=== PATIENT | female | born 1990 ===

== ENCOUNTER 2023-05-27 14:05 | Outpatient (CLI) | payer OTHER | END 2023-05-27 14:06 | disposition home or self-care (01) | LOC: PRENATAL 14:05 | PROVIDERS: ATTEND Obstetrics & Gynecology Maternal & Fetal Medicine | DX: O35.3XX0 Maternal care for (suspected) damage to fetus from viral disease in mother, not applicable or unspecified (principal); O44.00 Complete placenta previa NOS or without hemorrhage, unspecified trimester; Z3A.20 20 weeks gestation of pregnancy ==

== ENCOUNTER 2023-08-21 13:32 | Outpatient (CLI) | payer OTHER | END 2023-08-21 13:34 | disposition home or self-care (01) | LOC: PRENATAL 13:32 | PROVIDERS: ATTEND Obstetrics & Gynecology Maternal & Fetal Medicine | DX: O26.843 Uterine size-date discrepancy, third trimester (principal); O36.8130 Decreased fetal movements, third trimester, not applicable or unspecified; Z3A.32 32 weeks gestation of pregnancy ==

== ENCOUNTER 2023-12-23 16:00 | Outpatient (CLI) | payer OTHER | END 2023-12-23 16:10 | disposition home or self-care (01) | LOC: PPH VACUNA 16:00 | PROVIDERS: ATTEND Emergency Medicine Pediatric Emergency Medicine | DX: Z23 Encounter for immunization (principal) ==